=== PATIENT | male | born 1985 | race Caucasian/White ===

== ENCOUNTER 2017-01-28 05:21 | Emergency (ER) | payer OTHER ==
[~2017-01-28] VITALS: Ht 180.3 cm; Wt 76.0 kg
[2017-01-28 05:34] VITALS: BP 136/88; PULSE 91; RESP 18; TEMP 99.4; O2SAT 98
[2017-01-28 06:01] LABS: AUTOMATED NEUTROPHIL # 7.8 TH/MM3 (1.8-7.7); BASOPHIL # 0.1 TH/MM3 (0-0.2); BASOPHIL % 0.7 % (0.0-2.0); HEMATOCRIT 45.3 % (39.0-51.0); HEMO FLAGS DIFF FINAL; LYMPH % 16.8 % (9.0-44.0); LYMPHOCYTE # 1.7 TH/MM3 (1.0-4.8); MEAN CELL VOLUME 93.7 FL (80.0-100.0); MEAN CORPUSCULAR HEMOGLOBIN 32.1 PG (27.0-34.0); MEAN CORPUSCULAR HGB CONC 34.3 % (32.0-36.0); MONO % 5.4 % (0.0-8.0); NEUT % 77.1 % (16.0-70.0); PLATELET COUNT 280 TH/MM3 (150-450); RED BLOOD COUNT 4.84 MIL/MM3 (4.50-5.90); RED CELL DISTRIBUTION WIDTH 14.2 % (11.6-17.2); WHITE BLOOD COUNT 10.1 TH/MM3 (4.0-11.0)
--- NOTE | 2017-01-28 06:17 | PD ---
HPI Chief Complaint: Psychiatric Symptoms Time Seen by Provider: 05:31 Travel History International Travel<30 days: No Contact w/Intl Traveler<30days: No Traveled to known affect area: No History of Present Illness HPI 31-year-old male presents to the emergency department under Bryant act for psychiatric evaluation. Patient cut his left forearm this evening. Patient states he does not know why he didn't you is "being stupid." Per the Bryant act , the patient has had suicide attempts in the past and his mother was scared this was one of those. Patient denies any psychiatric history. Denies any illegal drug use except for marijuana. He said he drinks alcohol sometimes. Patient was initially seen and evaluated at [facility] where the laceration was cleansed and approximated. Patient was placed in a splint. He has no other symptoms to report against time. [facility], [facility] Past Medical History Medical History: Denies Significant Hx Tetanus Vaccination: < 5 Years Influenza Vaccination: No Past Surgical History Tonsillectomy: Yes (AND ADENOIDS) Social History Alcohol Use: Yes (OCC) Tobacco Use: Yes Substance Use: No Allergies-Medications (Allergen,Severity, Reaction): Coded Allergies: Penicillins (Verified Allergy, Unknown, 01/28/17) bee venom protein (honey bee) (Verified Allergy, Unknown, 01/28/17) clindamycin (Verified Allergy, Unknown, 01/28/17) Reported Meds & Prescriptions Reported Meds & Active Scripts Active No Active Prescriptions or Reported Medications Review of Systems Except as stated in HPI: all other systems reviewed are Neg Physical Exam Narrative GENERAL: Well-nourished male patient, with bizarre affect, no acute distress SKIN: Focused skin assessment warm/dry. HEAD: Atraumatic. Normocephalic. EYES: Pupils equal and round. No scleral icterus. No injection or drainage. ENT: No nasal bleeding or discharge. Mucous membranes pink and moist. NECK: Trachea midline. No JVD. CARDIOVASCULAR: Regular rate and rhythm. No murmur appreciated. RESPIRATORY: No accessory muscle use. Clear to auscultation. Breath sounds equal bilaterally. GASTROINTESTINAL: Abdomen soft, non-tender, nondistended. Hepatic and splenic margins not palpable. MUSCULOSKELETAL: No obvious deformities. No clubbing. No cyanosis. No edema. Left upper extremity splint in place. Cap refill within normal limits of the affected extremity. NEUROLOGICAL: Awake and alert. No obvious cranial nerve deficits. Motor grossly within normal limits. Normal speech. Data Data Last Documented VS Vital Signs Date Time Temp Pulse Resp B/P (MAP) Pulse Ox O2 Delivery O2 Flow Rate FiO2 01/28/17 05:34 99.4 91 18 136/88 (104) 98 Orders Orders Complete Blood Count With Diff (01/28/17 05:32) Basic Metabolic Panel (Bmp) (01/28/17 05:32) Psych Screen (01/28/17 05:32) Drug Screen, Random Urine (01/28/17 05:32) Alcohol (Ethanol) (01/28/17 05:32) Labs Laboratory Tests Test 01/28/17 05:47 White Blood Count 10.1 TH/MM3 Red Blood Count 4.84 MIL/MM3 Hemoglobin 15.5 GM/DL Hematocrit 45.3 % Mean Corpuscular Volume 93.7 FL Mean Corpuscular Hemoglobin 32.1 PG Mean Corpuscular Hemoglobin Concent 34.3 % Red Cell Distribution Width 14.2 % Platelet Count 280 TH/MM3 Mean Platelet Volume 7.0 FL Neutrophils (%) (Auto) 77.1 % Lymphocytes (%) (Auto) 16.8 % Monocytes (%) (Auto) 5.4 % Eosinophils (%) (Auto) 0.0 % Basophils (%) (Auto) 0.7 % Neutrophils # (Auto) 7.8 TH/MM3 Lymphocytes # (Auto) 1.7 TH/MM3 Monocytes # (Auto) 0.5 TH/MM3 Eosinophils # (Auto) 0.0 TH/MM3 Basophils # (Auto) 0.1 TH/MM3 CBC Comment DIFF FINAL Differential Comment Blood Urea Nitrogen 11 MG/DL Creatinine 1.02 MG/DL Random Glucose 97 MG/DL Calcium Level 8.6 MG/DL Sodium Level 140 MEQ/L Potassium Level 4.1 MEQ/L Chloride Level 110 MEQ/L Carbon Dioxide Level 21.0 MEQ/L Anion Gap 9 MEQ/L Estimat Glomerular Filtration Rate 85 ML/MIN Ethyl Alcohol Level 147 MG/DL [place] Medical Decision Making Medical Screen Exam Complete: Yes Emergency Medical Condition: Yes Medical Record Reviewed: Yes Differential Diagnosis Mood disorder versus personality disorder versus adjustment reaction disorder Narrative Course 31-year-old male presents to emergency department for evaluation under Bryant act. Patient appears without distress. He does have a very bizarre affect and is anxious pacing around the room. Splint is in place in left upper extremity and the extremity is neurovascularly intact. Lab work is ordered. Pending no acute lab abnormality, patient is medically cleared to undergo psychiatric screening for further evaluation and disposition. Mental health screening discussed with the patient. Psychiatric screen ordered. Diagnosis Primary Impression: Adjustment reaction Qualified Codes: F43.20 - Adjustment disorder, unspecified Scripts No Active Prescriptions or Reported Meds Condition: Stable Claire Gorman Jan 28, 2017 06:17
[2017-01-28 06:19] LABS: POTASSIUM 4.1 MEQ/L (3.5-5.1)
[2017-01-28 07:05] VITALS: BP 124/81; PULSE 78; RESP 17; TEMP 97.8; O2SAT 99
[2017-01-28 09:49] VITALS: BP 126/79; PULSE 69; RESP 18; TEMP 99.4; O2SAT 98
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
--- NOTE | 2017-01-28 12:46 | PD ---
Physical Exam Date Seen by Provider: Jan 28, 2017 Time Seen by Provider: 12:44 Narrative Patient was originally presenting with laceration to the left forearm, repaired at [facility] and brought here under the Bryant act. Patient was cleared by psychiatric staff, and felt to be stable for discharge. Patient should follow-up with his laceration with his primary care physician or return to emergency department in 7 days for wound check and suture removal. Psychiatric plan will be per Dr. Bianchi. Data Data Last Documented VS Vital Signs Date Time Temp Pulse Resp B/P (MAP) Pulse Ox O2 Delivery O2 Flow Rate FiO2 01/28/17 09:49 99.4 69 18 126/79 (95) 98 Room Air Orders Orders Complete Blood Count With Diff (01/28/17 05:32) Basic Metabolic Panel (Bmp) (01/28/17 05:32) Psych Screen (01/28/17 05:32) Drug Screen, Random Urine (01/28/17 05:32) Alcohol (Ethanol) (01/28/17 05:32) Diet Regular Basic (01/28/17 Breakfast) Labs Laboratory Tests Test 01/28/17 05:47 01/28/17 09:25 White Blood Count 10.1 TH/MM3 Red Blood Count 4.84 MIL/MM3 Hemoglobin 15.5 GM/DL Hematocrit 45.3 % Mean Corpuscular Volume 93.7 FL Mean Corpuscular Hemoglobin 32.1 PG Mean Corpuscular Hemoglobin Concent 34.3 % Red Cell Distribution Width 14.2 % Platelet Count 280 TH/MM3 Mean Platelet Volume 7.0 FL Neutrophils (%) (Auto) 77.1 % Lymphocytes (%) (Auto) 16.8 % Monocytes (%) (Auto) 5.4 % Eosinophils (%) (Auto) 0.0 % Basophils (%) (Auto) 0.7 % Neutrophils # (Auto) 7.8 TH/MM3 Lymphocytes # (Auto) 1.7 TH/MM3 Monocytes # (Auto) 0.5 TH/MM3 Eosinophils # (Auto) 0.0 TH/MM3 Basophils # (Auto) 0.1 TH/MM3 CBC Comment DIFF FINAL Differential Comment Blood Urea Nitrogen 11 MG/DL Creatinine 1.02 MG/DL Random Glucose 97 MG/DL Calcium Level 8.6 MG/DL Sodium Level 140 MEQ/L Potassium Level 4.1 MEQ/L Chloride Level 110 MEQ/L Carbon Dioxide Level 21.0 MEQ/L Anion Gap 9 MEQ/L Estimat Glomerular Filtration Rate 85 ML/MIN Ethyl Alcohol Level 147 MG/DL Urine Opiates Screen NEG Urine Barbiturates Screen NEG Urine Amphetamines Screen NEG Urine Benzodiazepines Screen NEG Urine Cocaine Screen NEG Urine Cannabinoids Screen POS MDM Medical Record Reviewed: Yes Supervised Visit with MICHAELA: Yes Narrative Course Patient was originally presenting with laceration to the left forearm, repaired at [facility] and brought here under the Bryant act. Patient was cleared by psychiatric staff, and felt to be stable for discharge. Patient should follow-up with his laceration with his primary care physician or return to emergency department in 7 days for wound check and suture removal. Psychiatric plan will be per Dr. Bianchi. Diagnosis Primary Impression: Adjustment disorder with mixed disturbance of emotions and conduct Additional Impression: Alcohol abuse Patient Instructions: General Instructions Scripts No Active Prescriptions or Reported Meds Disposition: 01 DISCHARGE HOME Condition: Stable Cristian Au Jan 28, 2017 12:45
== END 2017-01-28 13:13 ==
LOC: NEPD 05:21 → NEPJ 13:13
DX: Z04.6 Encounter for general psychiatric examination, requested by authority (principal); F43.25 Adjustment disorder with mixed disturbance of emotions and conduct; F10.10 Alcohol abuse, uncomplicated; F12.90 Cannabis use, unspecified, uncomplicated; Y90.6 Blood alcohol level of 120-199 mg/100 ml; Z72.0 Tobacco use
CPT/HCPCS: 80048; 80307; 85025; 99284

== ENCOUNTER 2017-09-02 19:12 | Emergency (ER) | payer OTHER ==
[~2017-09-02] VITALS: Ht 180.3 cm; Wt 80.0 kg
[2017-09-02 19:19] VITALS: BP 126/83; TEMP 99.1; O2SAT 96
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
[2017-09-02 19:43] VITALS: BP 137/85; PULSE 102; RESP 20; TEMP 98.4; O2SAT 97
[2017-09-02 20:26] LABS: AUTOMATED NEUTROPHIL # 6.6 TH/MM3 (1.8-7.7); BASOPHIL # 0.1 TH/MM3 (0-0.2); BASOPHIL % 0.7 % (0.0-2.0); EOSINOPHIL % 0.4 % (0.0-4.0); HEMATOCRIT 46.2 % (39.0-51.0); HEMOGLOBIN 15.7 GM/DL (13.0-17.0); LYMPH % 15.3 % (9.0-44.0); LYMPHOCYTE # 1.3 TH/MM3 (1.0-4.8); MEAN CELL VOLUME 91.7 FL (80.0-100.0); MEAN CORPUSCULAR HEMOGLOBIN 31.2 PG (27.0-34.0); MEAN PLATELET VOLUME 7.5 FL (7.0-11.0); MONO % 5.4 % (0.0-8.0); MONOCYTE # 0.5 TH/MM3 (0-0.9); NEUT % 78.2 % (16.0-70.0); PLATELET COUNT 295 TH/MM3 (150-450); RED BLOOD COUNT 5.04 MIL/MM3 (4.50-5.90); WHITE BLOOD COUNT 8.4 TH/MM3 (4.0-11.0)
[2017-09-02 20:56] LABS: ALBUMIN 4.5 GM/DL (3.4-5.0); AST (GOT) 27 U/L (15-37); BICARBONATE 22.4 MEQ/L (21.0-32.0); BLOOD UREA NITROGEN 13 MG/DL (7-18); CALCIUM 9.8 MG/DL (8.5-10.1); CHLORIDE 110 MEQ/L (98-107); CREATININE 1.09 MG/DL (0.60-1.30); GLOMERULAR FILTRATION RATE 78 ML/MIN (>89); GLUCOSE,RANDOM 94 MG/DL (74-106); SODIUM (NA) 143 MEQ/L (136-145)
[2017-09-02 20:57] LABS: ALT (GPT) 26 U/L (12-78)
[2017-09-02 21:07] LABS: ALKALINE PHOSPHATASE 79 U/L (45-117); TOTAL BILIRUBIN ADULT 0.3 MG/DL (0.2-1.0); TOTAL PROTEIN 8.2 GM/DL (6.4-8.2)
[2017-09-02 22:32] VITALS: BP 128/71; PULSE 75; RESP 18; TEMP 98.9; O2SAT 98
[2017-09-03 07:08] VITALS: BP 137/79; PULSE 72; RESP 18; TEMP 98.7; O2SAT 96
--- NOTE | 2017-09-03 08:18 | PD ---
Data Data Last Documented VS Vital Signs Date Time Temp Pulse Resp B/P (MAP) Pulse Ox O2 Delivery O2 Flow Rate FiO2 09/03/17 07:08 98.7 72 18 137/79 (98) 96 Room Air Orders Orders Complete Blood Count With Diff (09/02/17 19:37) Comprehensive Metabolic Panel (09/02/17 19:37) Thyroid Stimulating Hormone (09/02/17 19:37) Psych Screen (09/02/17 19:37) Drug Screen, Random Urine (09/02/17 19:37) Alcohol (Ethanol) (09/02/17 19:37) Diet Regular Basic (09/03/17 Breakfast) Labs Laboratory Tests Test 09/02/17 19:40 09/02/17 21:13 White Blood Count 8.4 TH/MM3 Red Blood Count 5.04 MIL/MM3 Hemoglobin 15.7 GM/DL Hematocrit 46.2 % Mean Corpuscular Volume 91.7 FL Mean Corpuscular Hemoglobin 31.2 PG Mean Corpuscular Hemoglobin Concent 34.0 % Red Cell Distribution Width 14.0 % Platelet Count 295 TH/MM3 Mean Platelet Volume 7.5 FL Neutrophils (%) (Auto) 78.2 % Lymphocytes (%) (Auto) 15.3 % Monocytes (%) (Auto) 5.4 % Eosinophils (%) (Auto) 0.4 % Basophils (%) (Auto) 0.7 % Neutrophils # (Auto) 6.6 TH/MM3 Lymphocytes # (Auto) 1.3 TH/MM3 Monocytes # (Auto) 0.5 TH/MM3 Eosinophils # (Auto) 0.0 TH/MM3 Basophils # (Auto) 0.1 TH/MM3 CBC Comment DIFF FINAL Differential Comment Blood Urea Nitrogen 13 MG/DL Creatinine 1.09 MG/DL Random Glucose 94 MG/DL Total Protein 8.2 GM/DL Albumin 4.5 GM/DL Calcium Level 9.8 MG/DL Alkaline Phosphatase 79 U/L Aspartate Amino Transf (AST/SGOT) 27 U/L Alanine Aminotransferase (ALT/SGPT) 26 U/L Total Bilirubin 0.3 MG/DL Sodium Level 143 MEQ/L Potassium Level 4.1 MEQ/L Chloride Level 110 MEQ/L Carbon Dioxide Level 22.4 MEQ/L Anion Gap 11 MEQ/L Estimat Glomerular Filtration Rate 78 ML/MIN Thyroid Stimulating Hormone 3rd Gen 1.300 uIU/ML Ethyl Alcohol Level 102 MG/DL Urine Opiates Screen NEG Urine Barbiturates Screen NEG Urine Amphetamines Screen NEG Urine Benzodiazepines Screen NEG Urine Cocaine Screen NEG Urine Cannabinoids Screen NEG MDM Medical Record Reviewed: Yes Supervised Visit with MICHAELA: No Narrative Course See previous providers notes for complete history of present illness. This patient has been seen by psychiatrist Dr. Billingsley and cleared by the psychiatry department. There is no medical issue that would warrant additional hospitalization. He is stable for discharge. Diagnosis Primary Impression: Medical clearance for psychiatric admission Med/Other Pt SpecificInfo: No Change to Meds Scripts No Active Prescriptions or Reported Meds Disposition: DISCHARGE HOME Condition: Stable Alejandro Hall Sep 03, 2017 08:18
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
== END 2017-09-03 08:54 | disposition home or self-care (01) ==
LOC: NEPJ 19:12
DX: Z02.89 Encounter for other administrative examinations (principal); F43.24 Adjustment disorder with disturbance of conduct; Z72.0 Tobacco use
CPT/HCPCS: 80053; 80307; 84443; 85025; 99284